=== PATIENT | male | born 1970 | race Caucasian/White ===

== ENCOUNTER 2017-12-02 18:18 | Emergency (ER) | payer OTHER ==
[~2017-12-02] VITALS: Ht 182.9 cm; Wt 91.6 kg
[~2017-12-02 18:18] MED LIST: NO HOME MEDS
[2017-12-02] MEDS ORDERED: TETanus/Pertussis (Acell)/Diphther VAC/PF (Tdap-Adult) 0.5ml syringe IMVAC ONE (19:30)
[2017-12-02] MEDS ORDERED: LIDOcaine 1.5% w/epinephrine 1:200,000 5ml ampul IJ ONE (19:30)
[2017-12-02 21:02] VITALS: BP 115/73
== END 2017-12-02 21:04 | disposition home or self-care (01) ==
LOC: ER 18:19
DX: S61.411A Laceration without foreign body of right hand, initial encounter (principal); W45.8XXA Other foreign body or object entering through skin, initial encounter; Y93.89 Activity, other specified; Y92.89 Other specified places as the place of occurrence of the external cause; Y99.8 Other external cause status
CPT/HCPCS: 29130; 90471; 90715; 99283; A6251; A6255; A6449; J3490

== ENCOUNTER 2023-11-18 07:57 | Inpatient (IN) | payer MEDICAID, OTHER ==
[~2023-11-18] VITALS: Ht 185.4 cm; Wt 106.8 kg
[2023-11-18 09:22] LABS: BASOPHILS # (AUTO) 0.1 X10'3 (0-0.2); BASOPHILS % (AUTO) 0.5 % (0-1); EOSINOPHILS # (AUTO) 0.1 X10'3 (0-0.9); EOSINOPHILS % (AUTO) 0.8 % (0-6); HEMATOCRIT 38.7 % (42.0-52.0); LYMPHOCYTES # (AUTO) 1.8 X10'3 (1.1-4.8); LYMPHOCYTES % (AUTO) 10.5 % (21-51); MEAN CORPUSCULAR HEMOGLOBIN 29.5 PG (27.0-31.0); MEAN CORPUSCULAR HGB CONC 33.6 g/dL (33.0-36.5); MEAN CORPUSCULAR VOLUME 87.8 FL (78-98); MEAN PLATELET VOLUME 8.6 FL (7.4-10.4); MONOCYTES # (AUTO) 1.4 X10'3 (0-0.9); MONOCYTES % (AUTO) 8.2 % (2-12); NEUTROPHILS # (AUTO) 13.6 X10'3 (1.8-7.7); PLATELET COUNT 219 X10'3 (140-440); RED BLOOD COUNT 4.41 X10'6 (4.70-6.10); RED CELL DISTRIBUTION WIDTH 13.2 % (11.5-14.5); WHITE BLOOD COUNT 17.1 X10'3 (4.5-11.0)
[2023-11-18] MEDS ORDERED: vancomycin/NS 1 GM ADD-VANTAGE 250 ML IV ONE (09:25)
[2023-11-18] MEDS ORDERED: potassium Cl 20 mEq SR tablet PO PRN ×2 (10:20)
[2023-11-18] MEDS ORDERED: potassium Cl 40MEQ/1/2NS 520ml 520 ML IV PRN (10:20)
[2023-11-18] MEDS ORDERED: magnesium 4gm in 100ml NS 100 ML IV PRN (10:20)
[2023-11-18] MEDS ORDERED: mag hydrox/Alum hydrox/simeth 30ml oral suspension PO PRN (10:20)
[2023-11-18] MEDS ORDERED: morphine 2 MG/ML inj. syringe IV PRN ×2 (10:20)
[2023-11-18] MEDS ORDERED: magnesium hydroxide 30ml (MOM) UD suspension PO PRN (10:20)
[2023-11-18] MEDS ORDERED: acetaminophen 325mg tablet PO PRN (10:20)
[2023-11-18] MEDS ORDERED: ondansetron/PF 4mg/2ml inj IV PRN (10:20)
[2023-11-18] MEDS ORDERED: magnesium Cl slow-release 64mg tablet PO PRN (10:20)
[2023-11-18] MEDS ORDERED: magnesium 2GM in 50ml NS 50 ML IV PRN (10:20)
[2023-11-18] MEDS: rifampin 300mg capsule PO SCH (10:25)
[2023-11-18 10:28] LABS: ALANINE AMINOTRANSFERASE 69 U/L (12-78); ALBUMIN 2.3 G/DL (3.4-5.0); ALBUMIN/GLOBULIN RATIO 0.5 (1.1-1.5); ALKALINE PHOSPHATASE 163 IU/L (46-116); ANION GAP 10 (8-16); ASPARTATE AMINO TRANSFERASE 38 U/L (10-37); BILIRUBIN,TOTAL 0.6 MG/DL (0.1-1.0); BLOOD UREA NITROGEN 21 MG/DL (7-18); BUN/CREATININE RATIO 24.7 (10.0-20.0); CALCIUM 8.1 MG/DL (8.5-10.1); CHLORIDE 101 MMOL/L (99-107); CREATININE 0.85 MG/DL (0.60-1.10); GLUCOSE 105 MG/DL (70-104); POTASSIUM 3.4 MMOL/L (3.5-5.1); SODIUM 135 MMOL/L (135-145); TOTAL CARBON DIOXIDE 23.8 MMOL/L (24-32); TOTAL PROTEIN 6.6 G/DL (6.4-8.2); eCRCL 114 ML/MIN; eGFR > 90 ML/MIN
[2023-11-18 11:18] LABS: MAGNESIUM 2.2 MG/DL (1.5-2.4); POTASSIUM 3.6 MMOL/L (3.5-5.1)
[2023-11-18] MEDS: dextrose 5%-1/2 normal saline 1,000 ML IV SCH (11:52)
[2023-11-18 15:33] LABS: BILIRUBIN,URINE SMALL (Neg); CLARITY,URINE SLIGHTLY CLOUDY (Clear); GLUCOSE, URINE 100 mg/dl (Neg); KETONES,URINE TRACE mg/dl (Neg); LEUKOCYTE ESTERASE ,URINE NEGATIVE (Neg); NITRITES, URINE NEGATIVE (Neg); OCCULT BLOOD,URINE NEGATIVE (Neg); PROTEIN,URINE NEGATIVE (Neg)
[2023-11-18 15:35] LABS: COLOR,URINE DARK YELLOW (Yellow); UA COLLECTION TYPE VOIDED
[2023-11-18 15:45] LABS: BACTERIA,URINE FEW /HPF (Neg); MUCUS STRANDS MANY /LPF (Neg); SQUAMOUS EPITHELIAL CELL,UR FEW /LPF (FEW); URINE AMPHETAMINE SCREEN POSITIVE (Neg); URINE BARBITUATE SCREEN NEGATIVE (Neg); URINE BENZODIAZEPINES SCREEN NEGATIVE (Neg); URINE CANNABINOID SCREEN NEGATIVE (Neg); URINE COCAINE SCREEN NEGATIVE (Neg); URINE METHADONE SCREEN NEGATIVE (Neg); URINE OPIATE SCREEN NEGATIVE (Neg); URINE PHENCYCLIDINE SCREEN NEGATIVE (Neg)
[2023-11-18 15:46] LABS: WBC,URINE 0-4 /HPF (0-4)
[2023-11-18] MEDS: piperacillin/tazo 3.375gm/50ml 50 ML IV SCH (16:07)
[2023-11-18] MEDS: K and/or MAG REPLACEMENT MC SCH (20:00)
[2023-11-18] MEDS: docusate sod 100mg capsule PO SCH (20:00)
[2023-11-18 21:50] VITALS: RESP 16; O2SAT 96
[2023-11-18 22:00] VITALS: BP 121/74; PULSE 87; RESP 19; TEMP 97.4; O2SAT 96
[2023-11-18] MEDS: vancomycin/NS 1 GM ADD-VANTAGE 250 ML IV SCH (22:22)
[2023-11-19] MEDS: HYDROcodone/acetaminophen 5mg/325mg tablet PO PRN ×2 (00:50→08:41)
[2023-11-19] MEDS: dextrose 5%-1/2 normal saline 1,000 ML IV SCH ×4 (00:50→22:23)
[2023-11-19] MEDS: piperacillin/tazo 3.375gm/50ml 50 ML IV SCH ×3 (02:46→18:42)
[2023-11-19] MEDS: vancomycin/NS 1 GM ADD-VANTAGE 250 ML IV SCH ×2 (05:19→14:25)
[2023-11-19 06:00] VITALS: BP 98/63; PULSE 77; RESP 18; TEMP 97.7; O2SAT 97
[2023-11-19 06:15] LABS: BASOPHILS % (AUTO) 0.3 % (0-1); EOSINOPHILS # (AUTO) 0.2 X10'3 (0-0.9); EOSINOPHILS % (AUTO) 1.1 % (0-6); HEMATOCRIT 36.7 % (42.0-52.0); HEMOGLOBIN 12.2 g/dl (14.0-17.9); LYMPHOCYTES % (AUTO) 12.3 % (21-51); MEAN CORPUSCULAR HEMOGLOBIN 29.5 PG (27.0-31.0); MEAN CORPUSCULAR HGB CONC 33.3 g/dL (33.0-36.5); MEAN CORPUSCULAR VOLUME 88.5 FL (78-98); MEAN PLATELET VOLUME 7.7 FL (7.4-10.4); MONOCYTES # (AUTO) 1.5 X10'3 (0-0.9); MONOCYTES % (AUTO) 9.3 % (2-12); NEUTROPHILS # (AUTO) 12.4 X10'3 (1.8-7.7); PLATELET COUNT 218 X10'3 (140-440); RED BLOOD COUNT 4.14 X10'6 (4.70-6.10); RED CELL DISTRIBUTION WIDTH 13.2 % (11.5-14.5); WHITE BLOOD COUNT 16.2 X10'3 (4.5-11.0)
[2023-11-19 06:31] LABS: ALANINE AMINOTRANSFERASE 69 U/L (12-78); ALBUMIN 2.2 G/DL (3.4-5.0); ALBUMIN/GLOBULIN RATIO 0.5 (1.1-1.5); ALKALINE PHOSPHATASE 177 IU/L (46-116); ANION GAP 5 (8-16); ASPARTATE AMINO TRANSFERASE 26 U/L (10-37); BILIRUBIN,TOTAL 1.4 MG/DL (0.1-1.0); BLOOD UREA NITROGEN 14 MG/DL (7-18); BUN/CREATININE RATIO 14.1 (10.0-20.0); CALCIUM 8.5 MG/DL (8.5-10.1); CHLORIDE 100 MMOL/L (99-107); CREATININE 0.99 MG/DL (0.60-1.10); GLUCOSE 117 MG/DL (70-104); MAGNESIUM 2.4 MG/DL (1.5-2.4); POTASSIUM 3.6 MMOL/L (3.5-5.1); SODIUM 134 MMOL/L (135-145); TOTAL CARBON DIOXIDE 28.7 MMOL/L (24-32); eCRCL 98 ML/MIN; eGFR 79 ML/MIN
[2023-11-19] MEDS: K and/or MAG REPLACEMENT MC SCH ×2 (08:00→20:00)
[2023-11-19] MEDS: enoxaparin 40mg/0.4ml syringe SUBCUT SCH (08:00)
[2023-11-19] MEDS: docusate sod 100mg capsule PO SCH ×2 (08:00→20:00)
[2023-11-19] MEDS: rifampin 300mg capsule PO SCH (09:25)
[2023-11-19 10:00] VITALS: BP 111/56; PULSE 81; RESP 16; TEMP 98.9; O2SAT 97
[2023-11-19] MEDS ORDERED: VANCOMYCIN LEVEL IV ONE (11:30)
[2023-11-19 18:00] VITALS: BP 101/57; PULSE 80; RESP 12; TEMP 98.5; O2SAT 98
[2023-11-19 22:00] VITALS: BP 118/58; PULSE 91; RESP 16; TEMP 97.5; O2SAT 94
[2023-11-19] MEDS: VANCOmycin 1250MG/NS 250ml Bag 250 ML IV SCH (22:12)
[2023-11-20] MEDS: piperacillin/tazo 3.375gm/50ml 50 ML IV SCH ×3 (01:02→16:06)
[2023-11-20] MEDS: VANCOmycin 1250MG/NS 250ml Bag 250 ML IV SCH ×3 (05:22→20:57)
[2023-11-20 06:00] VITALS: BP 105/50; PULSE 81; RESP 18; TEMP 97.8; O2SAT 96
[2023-11-20 07:07] LABS: BASOPHILS # (AUTO) 0.1 X10'3 (0-0.2); BASOPHILS % (AUTO) 0.9 % (0-1); EOSINOPHILS # (AUTO) 0.3 X10'3 (0-0.9); EOSINOPHILS % (AUTO) 1.8 % (0-6); HEMATOCRIT 37.5 % (42.0-52.0); HEMOGLOBIN 12.4 g/dl (14.0-17.9); LYMPHOCYTES # (AUTO) 2.2 X10'3 (1.1-4.8); LYMPHOCYTES % (AUTO) 13.3 % (21-51); MEAN CORPUSCULAR HEMOGLOBIN 29.6 PG (27.0-31.0); MEAN CORPUSCULAR VOLUME 89.7 FL (78-98); MEAN PLATELET VOLUME 8.2 FL (7.4-10.4); MONOCYTES # (AUTO) 1.4 X10'3 (0-0.9); MONOCYTES % (AUTO) 8.8 % (2-12); NEUTROPHILS # (AUTO) 12.3 X10'3 (1.8-7.7); NEUTROPHILS % (AUTO) 75.2 % (42-75); PLATELET COUNT 305 X10'3 (140-440); RED BLOOD COUNT 4.18 X10'6 (4.70-6.10); RED CELL DISTRIBUTION WIDTH 13.3 % (11.5-14.5); WHITE BLOOD COUNT 16.3 X10'3 (4.5-11.0)
[2023-11-20 07:16] LABS: ALANINE AMINOTRANSFERASE 57 U/L (12-78); ALBUMIN 2.1 G/DL (3.4-5.0); ALBUMIN/GLOBULIN RATIO 0.4 (1.1-1.5); ALKALINE PHOSPHATASE 162 IU/L (46-116); ANION GAP 8 (8-16); ASPARTATE AMINO TRANSFERASE 22 U/L (10-37); BILIRUBIN,TOTAL 0.4 MG/DL (0.1-1.0); BLOOD UREA NITROGEN 17 MG/DL (7-18); BUN/CREATININE RATIO 16.8 (10.0-20.0); CALCIUM 8.7 MG/DL (8.5-10.1); CHLORIDE 103 MMOL/L (99-107); CREATININE 1.01 MG/DL (0.60-1.10); GLUCOSE 115 MG/DL (70-104); MAGNESIUM 2.5 MG/DL (1.5-2.4); POTASSIUM 4.2 MMOL/L (3.5-5.1); SODIUM 136 MMOL/L (135-145); TOTAL CARBON DIOXIDE 25.4 MMOL/L (24-32); TOTAL PROTEIN 7.1 G/DL (6.4-8.2); eCRCL 96 ML/MIN; eGFR 77 ML/MIN
[2023-11-20] MEDS: docusate sod 100mg capsule PO SCH ×2 (07:20→20:00)
[2023-11-20] MEDS: enoxaparin 40mg/0.4ml syringe SUBCUT SCH (07:21)
[2023-11-20] MEDS: HYDROcodone/acetaminophen 5mg/325mg tablet PO PRN (07:23)
[2023-11-20] MEDS: dextrose 5%-1/2 normal saline 1,000 ML IV SCH ×2 (07:43→20:55)
[2023-11-20] MEDS: K and/or MAG REPLACEMENT MC SCH ×2 (08:00→20:00)
[2023-11-20] MEDS: rifampin 300mg capsule PO SCH (09:25)
[2023-11-20 10:00] VITALS: BP 140/79; PULSE 83; RESP 18; TEMP 96.9; O2SAT 96
[2023-11-20] MEDS: HYDROcodone/acetaminophen 10/325mg tab PO PRN (14:51)
[2023-11-20 18:00] VITALS: BP 116/67; PULSE 78; RESP 18; TEMP 97.7; O2SAT 99
[2023-11-20 20:00] VITALS: RESP 17; O2SAT 96
[2023-11-20] MEDS ORDERED: VANCOMYCIN LEVEL IV ONE (20:30)
[2023-11-20 22:00] VITALS: BP 122/74; PULSE 68; RESP 17; TEMP 98.1; O2SAT 96
[2023-11-21] MEDS: piperacillin/tazo 3.375gm/50ml 50 ML IV SCH ×2 (00:09→07:34)
[2023-11-21] MEDS: VANCOmycin 1250MG/NS 250ml Bag 250 ML IV SCH ×2 (05:51→12:38)
[2023-11-21 06:00] VITALS: BP 138/99; PULSE 75; RESP 18; TEMP 97.9; O2SAT 94
[2023-11-21] MEDS: rifampin 300mg capsule PO SCH (07:33)
[2023-11-21] MEDS: HYDROcodone/acetaminophen 10/325mg tab PO PRN ×2 (07:35→12:44)
[2023-11-21] MEDS: K and/or MAG REPLACEMENT MC SCH (08:00)
[2023-11-21] MEDS: docusate sod 100mg capsule PO SCH (08:00)
[2023-11-21] MEDS: enoxaparin 40mg/0.4ml syringe SUBCUT SCH (08:00)
[2023-11-21 08:05] LABS: BASOPHILS # (AUTO) 0.1 X10'3 (0-0.2); BASOPHILS % (AUTO) 0.9 % (0-1); EOSINOPHILS # (AUTO) 0.4 X10'3 (0-0.9); EOSINOPHILS % (AUTO) 2.9 % (0-6); HEMATOCRIT 39.3 % (42.0-52.0); HEMOGLOBIN 13.1 g/dl (14.0-17.9); LYMPHOCYTES # (AUTO) 2.4 X10'3 (1.1-4.8); LYMPHOCYTES % (AUTO) 17.5 % (21-51); MEAN CORPUSCULAR HEMOGLOBIN 29.8 PG (27.0-31.0); MEAN CORPUSCULAR HGB CONC 33.3 g/dL (33.0-36.5); MEAN CORPUSCULAR VOLUME 89.5 FL (78-98); MEAN PLATELET VOLUME 7.8 FL (7.4-10.4); MONOCYTES % (AUTO) 7.5 % (2-12); NEUTROPHILS # (AUTO) 9.8 X10'3 (1.8-7.7); NEUTROPHILS % (AUTO) 71.2 % (42-75); PLATELET COUNT 410 X10'3 (140-440); RED BLOOD COUNT 4.39 X10'6 (4.70-6.10); RED CELL DISTRIBUTION WIDTH 13.5 % (11.5-14.5); WHITE BLOOD COUNT 13.8 X10'3 (4.5-11.0)
[2023-11-21 08:13] LABS: ALANINE AMINOTRANSFERASE 59 U/L (12-78); ALBUMIN 2.2 G/DL (3.4-5.0); ALBUMIN/GLOBULIN RATIO 0.4 (1.1-1.5); ALKALINE PHOSPHATASE 154 IU/L (46-116); ANION GAP 8 (8-16); ASPARTATE AMINO TRANSFERASE 22 U/L (10-37); BILIRUBIN,TOTAL 0.4 MG/DL (0.1-1.0); BLOOD UREA NITROGEN 14 MG/DL (7-18); BUN/CREATININE RATIO 13.7 (10.0-20.0); CALCIUM 8.6 MG/DL (8.5-10.1); CHLORIDE 103 MMOL/L (99-107); CREATININE 1.02 MG/DL (0.60-1.10); GLUCOSE 105 MG/DL (70-104); MAGNESIUM 2.3 MG/DL (1.5-2.4); POTASSIUM 4.2 MMOL/L (3.5-5.1); SODIUM 137 MMOL/L (135-145); TOTAL CARBON DIOXIDE 26.3 MMOL/L (24-32); TOTAL PROTEIN 7.5 G/DL (6.4-8.2); eCRCL 95 ML/MIN; eGFR 76 ML/MIN
[2023-11-21] MEDS: dextrose 5%-1/2 normal saline 1,000 ML IV SCH (08:20)
[2023-11-21 10:00] VITALS: BP 133/77; PULSE 76; RESP 18; TEMP 97.7; O2SAT 98
[2023-11-21] MEDS ORDERED: AMOX-580 PO (12:42)
[2023-11-21] MEDS ORDERED: DOXY-243 PO (12:42)
== END 2023-11-21 13:40 | disposition home or self-care (01) | DRG 383 ==
LOC: ER 07:57 → ED HOLD 10:22 → ORTHO 4S 21:41
PROVIDERS: ADMIT Internal Medicine; ATTEND Internal Medicine
DX: L03.115 Cellulitis of right lower limb (principal); I73.9 Peripheral vascular disease, unspecified; F17.210 Nicotine dependence, cigarettes, uncomplicated; L03.116 Cellulitis of left lower limb; Z88.8 Allergy status to other drugs, medicaments and biological substances; Z71.6 Tobacco abuse counseling
CPT/HCPCS: 36415; 71045; 80053; 80202; 80305; 81001; 83605; 83735; 84132; 84145; 85025; 87040; 87081; 93971; 99285; A6223; A6253; A6446; A6449; G0378; J2543; J3370; J7042; J7070